=== PATIENT | male | born 1935 | race Two or more races ===

== ENCOUNTER 2017-10-24 12:30 | Outpatient (CLI) | payer OTHER ==
[~2017-10-24 12:30] MED LIST: CIPRO500 MG PO; NABUMETONE750 MG PO; TRIPLE ANTIBIOT15 GM TP
== END 2017-10-24 12:58 | disposition home or self-care (01) ==
LOC: MRI 12:30
DX: M51.36 Other intervertebral disc degeneration, lumbar region (principal)
CPT/HCPCS: 72148

== ENCOUNTER → 2018-02-09 | Outpatient (CLI) | payer OTHER | END | disposition home or self-care (01) | LOC: RAD 11:45 | DX: M50.00 Cervical disc disorder with myelopathy, unspecified cervical region (principal); M43.10 Spondylolisthesis, site unspecified ==

== ENCOUNTER 2018-02-12 11:00 | Outpatient (CLI) | payer OTHER | END 2018-02-12 13:15 | disposition home or self-care (01) | LOC: MRI 11:00 | DX: M50.00 Cervical disc disorder with myelopathy, unspecified cervical region (principal) | CPT/HCPCS: 72141 ==

== ENCOUNTER 2019-04-28 14:48 | Outpatient (CLI) | payer OTHER | END 2019-04-28 15:01 | disposition home or self-care (01) | LOC: LAB 14:48 | DX: M10.9 Gout, unspecified (principal) ==

== ENCOUNTER 2019-04-28 16:04 | Outpatient (CLI) | payer OTHER | END 2019-04-28 19:00 | disposition home or self-care (01) | LOC: NUCLEAR 16:04 | DX: I87.2 Venous insufficiency (chronic) (peripheral) (principal) ==

== ENCOUNTER 2020-12-14 11:06 | Outpatient (CLI) | payer OTHER | END 2020-12-14 11:15 | disposition home or self-care (01) | LOC: RAD 11:06 | PROVIDERS: ATTEND Internal Medicine Cardiovascular Disease | DX: Z98.41 Cataract extraction status, right eye (principal); M12.9 Arthropathy, unspecified ==